=== PATIENT | female | born 1980 | race Caucasian/White ===

== ENCOUNTER 2019-09-10 16:40 | Inpatient (IN) | payer BC ==
[~2019-09-10] VITALS: Ht 167.6 cm; Wt 82.1 kg
--- NOTE | ~2019-09-10 | EKG ---
[facility] [place] [address] ELECTROCARDIOGRAM REPORT Name: MICHAELMOSHE Room #: 360- ADM IN M.R.#: [id number] Admission: 09/10/19 Attend Phys: Brandan Skelton MD Discharge: Date of : 78 Report #: [id number] THIS REPORT FOR: cc: KYRIE JACOB Physician not on staff Audrey Ventura MD ~ THIS REPORT FOR: //name// [facility] Test Date: 2019-09-11 Test Time: 15:50:09 Pat Name: MOSHE RODRIGUEZ Department: Room: 360 Gender: F [employer] Worker: Denise MILLER : 1980 Requested By: Brandan Skelton Order Number: [id number] MD: Measurements Intervals [place] Rate: 92 P: 59 DE: 120 QRS: 22 QRSD: 93 T: 181 QT: 338 QTc: 419 Interpretive Statements Sinus rhythm Abnormal R-wave progression, early transition Probable LVH with secondary repol abnrm Compared to ECG 09/10/2019 16:49:47 No significant changes [email or web address] By: 1550 1550 Epiphany Epiphany, /EPI
--- NOTE | ~2019-09-10 | HC ---
[facility] [place] [address] CONSULTATION Name: MOSHE RODRIGUEZ Room #: 360-P ADM IN M.R.#: [id number] Admission: 09/10/19 Attend Phys: Brandan Skelton MD Discharge: Date of : 78 Report #: [id number] THIS REPORT FOR: cc: KYRIE JACOB Physician not on staff Meng Jama MD ~ THIS REPORT FOR: //name// CC: Brandan JACOB Physician staff DATE OF SERVICE: 09/11/2019 HISTORY OF PRESENT ILLNESS: A 39-year-old female patient who was seen by me for an episode of numbness on the left side. It came spontaneously without any trauma. It is better. She did get migraines in the past. They are somewhat less frequent now than it used to be. As an evaluation, she had CT angiography in the Emergency Room and that does not show any abnormality. She had a head MRI that was normal. Subsequently, she also started having some pain on the left side of the chest and an MRI of the thoracic and cervical spine was done. That showed some mild abnormality most of them on the right side, but nothing drastic. She also had some blood workup done and that included a lipid profile that demonstrated LDL somewhat high at 101. She is on aspirin when she is here. Her periods are irregular and she indicated that she is going to see her OB in that regard. REVIEW OF SYSTEMS: Indicate that she has psoriasis. She has been checked for other collagen vascular disorder by her [facility] consultant. They have not found any other collagen vascular disorder. She said she had shingles, but I am not sure how established the diagnosis was. A 14-point review of systems was otherwise noncontributory. PAST MEDICAL HISTORY: Negative for any stroke, but is positive for migraine. FAMILY HISTORY: Negative for any early age stroke. SOCIAL HISTORY: She drinks alcohol occasionally. PHYSICAL EXAMINATION: NEUROLOGIC: Indicate that she is alert and responsive, able to follow simple and complex command. Her speech, concentration, fund of knowledge and memory are at her baseline. Cranial nerves examination 2-12 does not appear to be showing any definite abnormality. Objectively, her strength, sensation, reflexes, and tones are symmetrical on both sides. There is no cerebellar sign. There is no papilledema. [address] [address] CONSULTATION Name: MOSHE RODRIGUEZ Room #: 360-[facility] IN M.R.#: [id number] Admission: 09/10/19 Attend Phys: Brandan Skelton MD Discharge: Date of : 78 Report #: [id number] CARDIAC: Unremarkable. LUNGS: No respiratory difficulty was noticed. VITAL SIGNS: Pulses are palpable and she has no edema. Her blood pressure is 127/88, respiration is 16, pulse is 77, temperature is 97.8. DIAGNOSTIC DATA: White count is 10. Imaging studies were reviewed and summarized as above. 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 I am not certain about the diagnosis. I did not order a collagen vascular workup because she says her [facility] consultant has already done that. I do not think any further neurological workup except an echocardiogram looking for PFO needs to be done. We will suggest mainly concentrating on evaluation of any systemic etiology for the patient's symptoms. I did order an echocardiogram. Please call if followup is needed, but otherwise, I think she needs mainly evaluation and management of her systemic problem. Thank you very much for this referral. By: [id number] Meng Jama MD /nt
--- NOTE | ~2019-09-10 | EKG ---
[facility] [place] [address] ELECTROCARDIOGRAM REPORT Name: MOSHE RODRIGUEZ Room #: PRE M.R.#: [id number] Admission: Attend Phys: Discharge: Date of : 78 Report #: [id number] THIS REPORT FOR: cc: Audrey Ventura MD ~ THIS REPORT FOR: //name// [facility] ED Test Date: 2019-09-10 Test Time: 16:49:47 Pat Name: MOSHE RODRIGUEZ Department: Room: Gender: F [employer]: : 1980 Requested By: Kelli Burrell Order Number: [id number] MD: Measurements Intervals [place] Rate: 97 P: 56 NC: 126 QRS: 10 QRSD: 96 T: 194 QT: 319 QTc: 405 Interpretive Statements Sinus rhythm Abnormal R-wave progression, early transition LVH with secondary repolarization abnormality No previous ECG available for comparison [email or web address] By: 48 48 Audrey Ventura MD /EPI
[2019-09-10 16:41] VITALS: BP 135/99
[2019-09-10 17:49] LABS: ABSOLUTE NEUTROPHILS 6.7 thou/uL (1.4-8.2); BASOPHILS 0.2 % (0.0-2.0); EOSINOPHILS 1.2 % (0.0-3.0); HEMATOCRIT 39.2 % (37.0-47.0); HEMOGLOBIN 12.8 gm/dL (12.0-15.0); LYMPHOCYTES 33.6 % (24.0-44.0); MCH 28.7 pg (26.0-34.0); MCHC 32.5 g/dL (28.0-37.0); MCV 88.1 fL (80.0-100.0); MONOCYTES 8.4 % (1.0-8.0); POLYS 56.6 % (36.0-66.0); RBC 4.45 mil/uL (4.20-5.00); RDW 14.5 % (10.5-14.5); WBC 11.9 thou/uL (4.0-11.0)
[2019-09-10 17:59] LABS: ANION GAP 7 mmol/L (7-16); BUN 11 mg/dL (7-18); CALCIUM 8.9 mg/dL (8.5-10.1); CHLORIDE 100 mmol/L (98-107); CO2 32 mmol/L (21-32); CREATININE 0.8 mg/dL (0.6-1.0); GLUCOSE 80 mg/dL (74-106); POTASSIUM 3.2 mmol/L (3.5-5.1); SODIUM 139 mmol/L (136-145)
[2019-09-10 18:08] LABS: ALBUMIN 4.1 g/dL (3.4-5.0); SGOT 9 U/L (15-37); SGPT 22 U/L (30-65); TOTAL BILIRUBIN 0.2 mg/dL (<0.1-1.0); TOTAL PROTEIN 7.4 g/dL (6.4-8.2); TROPONIN-I <0.06 ng/mL (<0.06)
[2019-09-10 18:16] LABS: LARGE PLATELETS RARE; PLATELET COUNT 266 thou/uL (150-400)
[2019-09-10 18:43] LABS: URINE BILIRUBIN NEGATIVE (Negative); URINE BLOOD 3+ (Negative); URINE CLARITY CLEAR; URINE COLOR YELLOW; URINE GLUCOSE-RANDOM* NEGATIVE (Negative); URINE KETONES NEGATIVE (Negative); URINE LEUKOCYTES-REFLEX NEGATIVE (Negative); URINE NITRITE-REFLEX NEGATIVE (Negative); URINE PROTEIN (DIPSTICK) NEGATIVE (Negative); URINE SPECIFIC GRAVITY <= 1.005 (1.005-1.035); URINE UROBILINOGEN 0.2 E.U./dl (0.2-1.0)
[2019-09-10 18:52] LABS: SQUAMOUS 0-3 Few /LPF (0-3)
[2019-09-10 18:53] LABS: BACTERIA-REFLEX None Seen /HPF (None Seen); CASTS None Seen /LPF (None Seen); CRYSTALS None Seen /LPF (None Seen); URINE RBC 3-10 Few /HPF (0-2); URINE WBC-REFLEX 0-5 Rare /HPF (0-5)
[2019-09-10 19:45] VITALS: BP 138/80
[2019-09-10 19:58] VITALS: BP 133/86
--- NOTE | 2019-09-10 22:00 | NUR ---
admission note: she complains of some coldness at her shoulder with pain, but she hesitates to call it pain. her potassium level was low in the ED, but it was treated with po potassium. she is keenly alert, and is a good historian. she is concerned that she needs her prednisone tonight she didnot get her tapered dose today. she had been on it for what she says that it was prescribed for an allergic reaction. her allergic reaction included runy nose, red throat skin (external), rashy/dry patch to an area on her leg, weakness in legs. she is very vague about the weakness in her legs complaint. she stated that these sypmtoms are gone and that she is feeling better. she is a 0 on her NIH scale. careplan initiated.
[2019-09-10 23:50] VITALS: BP 128/84
[2019-09-11 00:30] VITALS: BP 128/84
[2019-09-11] MEDS ORDERED: MELOXICAM15 MG PO (01:02)
[2019-09-11 02:06] LABS: GLYCOHEMOGLOBIN (HGB A1C) 5.3 % (4.8-5.6)
[2019-09-11 04:00] VITALS: BP 112/73
[2019-09-11 05:46] LABS: HEMATOCRIT 39.9 % (37.0-47.0); HEMOGLOBIN 12.8 gm/dL (12.0-15.0); MCH 28.6 pg (26.0-34.0); MCHC 32.1 g/dL (28.0-37.0); RBC 4.48 mil/uL (4.20-5.00); RDW 14.6 % (10.5-14.5)
[2019-09-11 06:20] LABS: ANION GAP 7 mmol/L (7-16); BUN 6 mg/dL (7-18); CALCIUM 8.5 mg/dL (8.5-10.1); CHLORIDE 103 mmol/L (98-107); CHOLESTEROL 166 mg/dL (<200); CO2 30 mmol/L (21-32); CREATININE 0.8 mg/dL (0.6-1.0); GLUCOSE 134 mg/dL (74-106); HDL CHOLESTEROL 58 mg/dL (>40); LDL CHOLESTEROL 101 mg/dL (<100); POTASSIUM 3.9 mmol/L (3.5-5.1); SODIUM 140 mmol/L (136-145); TC:HDL 2.9 Ratio (Not establshd); TRIGLYCERIDE 37 mg/dL (<150); VLDL 7 mg/dL (<40)
[2019-09-11 08:22] VITALS: BP 127/88
--- NOTE | 2019-09-11 09:44 | NUR ---
RD consult received for wound. Chart was reviewed, no wound present. Pt not at malnutrition risk, normal labs. No RD consult needed at this time.
--- NOTE | 2019-09-11 16:04 | NUR ---
Assumed care approx. 0700 this AM. Patient taken off of vent by RT and placed on trach shield this morning. Pt initially had an anxiety attack, expressing that she was having SOB and trouble breathing. O2 sat was 100%. Dr. Ward called about the situation and said he doesn't want to order meds for anxiety at this time as the pt just needs reassured that she is okay and can do this without the vent. Dr. Ward said it would be okay for the patient to be placed back on the vent if work of breathing becomes apparent, but patient has tolerated well after reassurance so far this shift. Abdominal pain and neck pain treated with ordered narcotics. Tube feed infusing per orders. Wound vac intact. No acute changes noted this shift. Pt progressing toward plan of care goals.
--- NOTE | 2019-09-11 16:16 | NUR ---
Assumed care approx. 0700 this AM. Pt started to complain of a "burning type pain" again in left chest wall up to neck after eating lunch this afternoon. Pt stood up and heart rate increased to 130's but came right back down to the 90's. Pt was also complaining of increased indigestion, belching, and a couple of red spots on the face. Dr. Skelton paged about issues. A GI consult was ordered, mylanta for indegestion and a 12 lead EKG. at bedside for support. Will continue to monitor. Pt not really progressing toward goals at this time as same issues from prior to admit reoccured this afternoon.
[2019-09-11 16:20] VITALS: BP 127/81
[2019-09-11 19:24] VITALS: BP 124/84
[2019-09-12 04:16] VITALS: BP 122/88
--- NOTE | 2019-09-12 05:00 | NUR ---
Pt. slept well during the night. Kept NPO for EGD today. Left chest wall discomfort which she rated as very mild 1-2/10 and thinks it might be muscular pain. Denies need for pain med.No change in neuro status. Up ad lisa in room with steady gait. Making progress towards care plan goals.
[2019-09-12 07:13] VITALS: BP 116/80
--- NOTE | 2019-09-12 08:18 | NUR ---
RD consult received intially for wound identification. Chart was reviewed, no wound. Chart reviewed, RD consult not indicated. Low nutrition risk
[2019-09-12 12:57] VITALS: BP 135/93
[2019-09-12] MEDS ORDERED: LYRICA25 MG PO (15:16)
[2019-09-12 15:41] VITALS: BP 114/78
--- NOTE | 2019-09-12 15:57 | 2DMMODE ---
[facility] [address] [place] [address] 2 D/M-MODE ECHOCARDIOGRAM Name: MOSHE RODRIGUEZ Room #: 360-P ADM IN M.R.#: [id number] Admission: 09/10/19 Attend Phys: Brandan Skelton MD Discharge: Date of : 78 Report #: [id number] THIS REPORT FOR: cc: KYRIE JACOB not on staff Tristen Bhatt MD ~ THIS REPORT FOR: //name// APPROVED REPORT Study performed: 09/12/2019 14:24:49 EXAM: Comprehensive 2D, Doppler, and color-flow Echocardiogram Patient Location: Bedside Room #: 360 Status: routine BSA: 1.92 HR: 92 bpm BP: 116/80 mmHg Rhythm: NSR Other Information Study Quality: Adequate Indications Chest Pain 2D Dimensions LVOT Diam: 20.00 (18-24mm) Ascending Ao: 25.58 (22-36mm) Aortic Root: 26.38 mm LV Single Plane 4CH: 51.84 % LV Single Plane 2CH: 54.80 % Biplane EF: 53.6 % Volumes Left Atrial Volume (Systole) Single Plane 4CH: 15.68 mL Single Plane 2CH: 24.43 mL LA ESV Index: 12.00 mL/m2 Aortic Valve AoV Peak Reji.: 1.19 m/s AO Peak Gr.: 5.62 mmHg LVOT Max P.18 mmHg LVOT Max V: 1.02 m/s [facility] [address] [place] [address] 2 D/M-MODE ECHOCARDIOGRAM Name: MOSHE RODRIGUEZ Room #: 360-P ADM IN M.R.#: [id number] Admission: 09/10/19 Attend Phys: Brandan Skelton MD Discharge: Date of : 78 Report #: [id number] CHARLEY Vmax: 2.63 cm2 Mitral Valve E/A Ratio: 1.1 MV Decel. Time: 125.72 ms MV E Max Reji.: 0.70 m/s MV A Reji.: 0.62 m/s MV PHT: 36.46 ms IVRT: 62.28 ms TDI E/Lateral E': 7.00 E/Medial E': 11.67 Medial E' Reji.: 0.06 m/s Lateral E' Reji.: 0.10 m/s Pulmonary Valve PV Peak Reji.: 1.05 m/s PV Peak Gr.: 4.38 mmHg Pulmonary Vein P Vein S: 0.50 m/s P Vein A: 0.26 m/s P Vein D: 0.42 m/s P Vein A Dur.: 107.3 msec P Vein S/D Ratio: 1.19 Tricuspid Valve RAP Estimate: 7.00 mmHg Left Ventricle The left ventricle is normal size. There is normal LV segmental wall motion. There is normal left ventricular wall thickness. Left ventricular systolic function is normal. The left ventricular ejection fraction is within the normal range. LVEF is 50-55%. Right Ventricle The right ventricle is normal size. The right ventricular systolic function is normal. Atria The left atrium size is normal. The right atrium size is normal. Aortic Valve The aortic valve is normal in structure. No aortic regurgitation is present. There is no aortic valvular stenosis. Mitral Valve The mitral valve is normal in structure. There is no mitral valve [facility] [place] [place] [address] 2 D/M-MODE ECHOCARDIOGRAM Name: MICHAELMOSHE Room #: 360-P ADM IN M.R.#: [id number] Admission: 09/10/19 Attend Phys: Brandan Skelton MD Discharge: Date of : 78 Report #: [id number] regurgitation noted. No evidence of mitral valve stenosis. Tricuspid Valve The tricuspid valve is normal in structure. There is no tricuspid valve regurgitation noted. Pulmonic Valve The pulmonary valve is normal in structure. There is no pulmonic valvular regurgitation. Great Vessels The aortic root is normal in size. The ascending aorta is normal in size. IVC is normal in size and collapses >50% with inspiration. Pericardium There is no pericardial effusion. <Conclusion> The left ventricle is normal size. LVEF is 50-55%. The aortic valve is normal in structure. The mitral valve is normal in structure. The tricuspid valve is normal in structure. The pulmonary valve is normal in structure. There is no pericardial effusion. <ELECTRONICALLY SIGNED> By: Tristen Bhatt MD 09/12/19 1556 1556 1556 Tristen Bhatt MD /INF
[2019-09-12 16:25] VITALS: BP 114/78
--- NOTE | 2019-09-12 16:52 | NUR ---
PATIENT TOLERATED EGD. NO DISDRESS NOTED. DC TO HOME NOW.
== END 2019-09-12 16:55 | disposition home or self-care (01) | DRG 69 ==
LOC: ER 16:40 → EROBS 19:42 → 3W 19:42
PROVIDERS: Nurse Practitioner Family; ADMIT Hospitalist
PROC: 0DJ08ZZ Inspection of Upper Intestinal Tract, Via Natural or Artificial Opening Endoscopic (ICD-10-PCS; principal; 2019-09-12)
DX: G45.9 Transient cerebral ischemic attack, unspecified (principal); E87.6 Hypokalemia; G43.909 Migraine, unspecified, not intractable, without status migrainosus; Z79.1 Long term (current) use of non-steroidal anti-inflammatories (NSAID); Z79.899 Other long term (current) drug therapy
CPT/HCPCS: 10879; 62110; 62900; 70005